=== PATIENT | male | born 1985 | race Caucasian/White ===

== ENCOUNTER 2017-06-06 19:17 | Emergency (ER) | payer SELFPAY ==
[~2017-06-06] VITALS: Ht 177.8 cm; Wt 77.1 kg
--- NOTE | 2017-06-06 20:04 | NUR ---
32 YO MALE BB FRIEND. PATIENT IS ALERT AND ORIENTED X 2, CAN NOT RECALL TIME. PATIENT STATES HE WAS TRYING TO DO A BACK FLIP, MESSED UP THE LANDING AND HIT HIS CHIN. NOTED LACERATION ON HIS CHIN. PATIENT AMBULATED TO ER BED WITH STEADY AGIT, SKIN WARM AND DRY, RESP EVEN AND UNLABORED. PATIENT GOWNED,PLACED ON MD PSYCHIATRY. AWAITING ORDERS FROM PROVIDER, WILL CONTINUE TO MONITOR
[2017-06-06] MEDS ORDERED: LIDOCAINE 0.5% HCL 50 ML VIAL ONE (20:22)
[2017-06-06] MEDS ORDERED: LIDOCAINE HCL/PF 1% 30 ML VIAL TP ONE (20:30)
--- NOTE | 2017-06-06 20:43 | NUR ---
PT RETURNED FROM CT VIA WHEELCHAIR BY MANAGEMENT CONSULTANT
[2017-06-06 21:50] VITALS: BP 142/78
--- NOTE | 2017-06-06 21:50 | NUR ---
PATient discharged to home in stable condition. Written and verbal after care instructions given. Patient verbalizes understanding of instruction. PT ambulatory with a steady gait VITAL SIGNS WITHIN NORMAL LIMITS.
== END 2017-06-06 21:51 | disposition home or self-care (01) ==
LOC: ER 19:26
DX: S06.0X0A Concussion without loss of consciousness, initial encounter (principal); S01.81XA Laceration without foreign body of other part of head, initial encounter; F10.10 Alcohol abuse, uncomplicated; F17.200 Nicotine dependence, unspecified, uncomplicated; Z90.89 Acquired absence of other organs; W22.8XXA Striking against or struck by other objects, initial encounter; Y93.89 Activity, other specified; Y92.89 Other specified places as the place of occurrence of the external cause; Y99.8 Other external cause status
CPT/HCPCS: 70450-TC; A4606; A6402; J3490; Z7610